=== PATIENT | male | born 1970 | race Two or more races ===

== ENCOUNTER 2024-04-07 16:20 | Emergency (ER) | payer MEDICAID, OTHER ==
[~2024-04-07] VITALS: Ht 172.7 cm; Wt 72.7 kg
[2024-04-07 16:26] VITALS: BP 136/68; PULSE 70; RESP 18; O2SAT 98
== END 2024-04-07 23:12 | disposition left against medical advice (07) ==
LOC: ER 16:20
DX: R07.81 Pleurodynia (principal); Z53.21 Procedure and treatment not carried out due to patient leaving prior to being seen by health care provider